=== PATIENT | male | born 1970 | race Caucasian/White ===

== ENCOUNTER → 2018-10-13 | Outpatient (CLI) | payer OTHER | LOC: LAB 14:43 | PROVIDERS: ATTEND Internal Medicine | DX: B20 Human immunodeficiency virus [HIV] disease (principal) | CPT/HCPCS: 36415; 82040; 82247; 82310; 82374; 82435; 82565; 82947; 84075; 84132; 84155; 84295; 84450; 84460; 84520; 85027 ==

== ENCOUNTER 2018-11-24 13:38 | Outpatient (RCR) | payer OTHER ==
[~2018-11-24 13:38] MED LIST: ABAC1TAB PO; CHOL10005 PO; ERTU15TA PO; FLUO-176 PO; LEVO50TA86 PO; MONT10TA PO; PIOG30TA71 PO; [UNRECOGNIZED DRUG - CODE] PO
--- NOTE | 2018-11-24 17:03 | Medical Nutrition Therapy ---
Nutrition Anthropometrics Height (Inches): 69 (stated ht) Weight (Pounds): 252 BMI: 37.2 Elias Nutrition Score: Elias Nutrition Risk Score: Dietary Referral Nutrition Risk Factors: Nutrition Risk Comment: Physical Findings Physical Appearance: Obese BMI 30-39 Skin Appearance Skin Appearance: Edema Edema Location Modifier: Edema Location: Type of Edema: Degree of Edema: Gastrointestinal Symptoms GI Symtoms: Tube Present: Bowel Sounds: Recent Bowel Pattern: Stool Characteristics: Nutrition/Food History Breakfast: skips Lunch: soup kitchen: cod, 1c rice, ww bread Dinner: meat, 2c rice, occ fruit Snacks: nuts Nutritional Education Nutrition Education Topic: Diabetic Nutrition Learning Readiness: Interested Teaching Methods: Discussion, Handout, Demonstration Response to Teaching: Verbalize understanding, Reinforcement needed Teaching Recipient: Patient Nutrition Counseling: Pt with new dx T2DM. pt has extensive family hx of T2DM. Pt reported A1c 6 in January 2018 but was 10.5 at pre-surgery check up. Pt reports motivated to make diet changes to control diabetes however has several barriors at this time. Pt is currently not working, has limited financial resources and is schedualed for surgery next week. Reviewed what is diabetes, reviewed and demonstrated glucometer. Pt was able to successfully obtain BG reading. Provided 360 BG test for pt to test 6X/day for 3 days to get better understnding of what is happening with BG. However pt curretnly stressed about upcoming surgery and recommended wait on test until after he has recovered from surgery for greater accuracy of readings. Reviewed CHO counting and plate method. Provided meal plan of 3-4 CHO servings or 1.5- 2c CHO/meal. Demonstrated injection of bydureon and reviewed medication and side effects. Pt was able to correctly give injection. Discussed diabetic classes. Pt not ready for classes at this time r/t concern for surgery. Pt will contact [facility] when ready or we will call him in a month. Pt did make a support plan but declined to make a behavioural goal at this time. Nutrition Monitoring & Eval RD Patient Assessment Time: 90 minutes Nutritional Comment: Provided 100 minutes diabetic education focusing on nutrition, med management, glucometer teaching, support plan. Copies To Copies to: LALO AKBAR MD ; MAREN HENRY Nov 24, 2018 17:03
== END 2018-12-25 16:43 | disposition home or self-care (01) ==
LOC: DIET 13:38
PROVIDERS: ATTEND Family Medicine
DX: Z71.3 Dietary counseling and surveillance (principal); E11.9 Type 2 diabetes mellitus without complications
CPT/HCPCS: G0108 ×2